=== PATIENT | female | born 1935 | race Native Hawaiian/Other Pacific Islander ===

== ENCOUNTER 2018-08-31 09:50 | Emergency (ER) | payer MEDICARE ==
[~2018-08-31] VITALS: Ht 157.5 cm; Wt 50.3 kg
[2018-08-31] MEDS ORDERED: MORPHINE SULFATE 4 MG/1 ML DISP.SYRIN ONE ×2 (10:00→12:09)
[2018-08-31] MEDS ORDERED: ATOR10TA PO (10:01)
[2018-08-31] MEDS: MORPHINE SULFATE 2 MG/1 ML DISP.SYRIN IV ONE ×2 (10:03→10:50)
--- NOTE | 2018-08-31 10:03 | NUR ---
*Morphine 2 mg IM was given instead (left deltoid) per patient's preferance, MD notified
[2018-08-31] MEDS ORDERED: LIDOCAINE HCL 2% 20 ML VIAL ONE (10:19)
[2018-08-31] MEDS ORDERED: LIDOCAINE HCL 2% 20 ML VIAL IJ ONE (10:30)
[2018-08-31] MEDS ORDERED: PROPOFOL 200 MG/20 ML BOTTLE IV ONE (10:30)
[2018-08-31] MEDS ORDERED: PROPOFOL 200 MG/20 ML BOTTLE ONE (10:41)
[2018-08-31] MEDS ORDERED: MORPHINE SULFATE 2 MG/1 ML DISP.SYRIN IV ONE (12:15)
--- NOTE | 2018-08-31 12:17 | NUR ---
Patient is taking po fluids well (clear liquid tray) at this time.
--- NOTE | 2018-08-31 12:48 | NUR ---
IV removed. Catheter intact and site benign. Pressure and 4x4 gauze applied to site. No bleeding noted. Patient discharged to home in stable conditon & steady gait. Written and verbal after care instructions given to patient and adult daughter. Patient and family verbalized understanding of instructions.
== END 2018-08-31 12:49 | disposition home or self-care (01) ==
LOC: ER 09:50
DX: S52.571A Other intraarticular fracture of lower end of right radius, initial encounter for closed fracture (principal); W01.0XXA Fall on same level from slipping, tripping and stumbling without subsequent striking against object, initial encounter; Y93.89 Activity, other specified; Y92.89 Other specified places as the place of occurrence of the external cause; Y99.8 Other external cause status
CPT/HCPCS: 73110; A4663; J2270; J3490; J7030